=== PATIENT | female | born 2000 | race Caucasian/White ===

== ENCOUNTER 2018-03-05 09:43 | Emergency (ER) | payer OTHER ==
[~2018-03-05] VITALS: Ht 165.1 cm; Wt 61.2 kg
[2018-03-05] MEDS ORDERED: PYRIDIUM200 M1 PO ×2 (09:52→10:50)
[2018-03-05] MEDS ORDERED: BACTRIM 400-801 EACH PO ×2 (09:52→10:50)
[2018-03-05] MEDS ORDERED: BIRTH CONTROL (10:06)
[2018-03-05 10:18] LABS: BILIRUBIN NEGATIVE (NEGATIVE); BLOOD 3+ (NEGATIVE); CLARITY TURBID (CLEAR); COLOR RED (YELLOW); GLUCOSE NEGATIVE (NEGATIVE); KETONE NEGATIVE (NEGATIVE); NITRITE NEGATIVE (NEGATIVE); PH 6.5 (5.0-9.0); SPECIFIC GRAVITY >= 1.030 (1.005-1.030); UROBILINOGEN 0.2 E.U./dl (0.2-1.0)
[2018-03-05 10:26] LABS: LEUKO ESTERASE NEGATIVE (NEGATIVE)
[2018-03-05 10:27] LABS: RBC TNTC rbc/hpf (0-2)
[2018-03-05 10:31] LABS: BACTERIA 1+; EPITHELIAL CELLS 40-50; WBC 51-100 wbc/hpf (0-5)
== END 2018-03-05 10:00 | disposition home or self-care (01) ==
LOC: ED 09:43
PROVIDERS: Emergency Medicine
DX: N39.0 Urinary tract infection, site not specified (principal)

== ENCOUNTER 2018-09-21 21:31 | Emergency (ER) | payer OTHER ==
[~2018-09-21] VITALS: Wt 63.5 kg
[~2018-09-21 21:31] MED LIST: BACTRIM 400-801 EACH PO; BIRTH CONTROL; PYRIDIUM200 M1 PO
[2018-09-21 22:02] LABS: BILIRUBIN NEGATIVE (NEGATIVE); BLOOD 3+ (NEGATIVE); CLARITY SL CLOUDY (CLEAR); COLOR YELLOW (YELLOW); GLUCOSE NEGATIVE (NEGATIVE); KETONE NEGATIVE (NEGATIVE); LEUKO ESTERASE TRACE (NEGATIVE); NITRITE NEGATIVE (NEGATIVE); SPECIFIC GRAVITY <= 1.005 (1.005-1.030); UROBILINOGEN 0.2 E.U./dl (0.2-1.0)
[2018-09-21 22:10] LABS: BACTERIA 1+; EPITHELIAL CELLS TNTC; RBC 21-30 rbc/hpf (0-2); WBC 21-30 wbc/hpf (0-5)
[2018-09-21 22:29] LABS: BASO % 0.2 % (0.0-1.0); EOS # 0.1 10*3/uL (0.0-0.4); EOS % 0.8 % (1.0-4.0); HEMATOCRIT 33.2 % (37.0-47.0); HEMOGLOBIN 11.3 g/dl (12.0-16.0); LYMPH # 2.3 10*3/uL (1.3-4.4); LYMPH % 18.1 % (27.0-41.0); MEAN CELL VOLUME 87.1 fl (81.0-99.0); MEAN CORPUSCULAR HGB 29.7 pg (27.0-31.0); MEAN PLATELET VOLUME 9.1 fl (9.6-12.3); MONO # 0.7 10*3/uL (0.1-1.0); MONO % 5.8 % (3.0-9.0); NEUT # 9.6 10*3/uL (2.3-7.9); NEUT % 74.7 % (47.0-73.0); PLATELET COUNT AUTOMATED 239 10*3/uL (130-400); RED BLOOD COUNT 3.81 10*6/uL (4.10-5.10); RED CELL DISTRI WIDTH 14.2 % (0-14.5); WHITE BLOOD COUNT 12.8 10*3/uL (4.8-10.8)
[2018-09-21] MEDS ORDERED: MACROBID100 M1 PO (22:36)
[2018-09-21 22:40] LABS: ACT PARTIAL THROMBO TIME 25.1 SECONDS (20.8-31.5)
[2018-09-21 22:46] LABS: ALBUMIN 3.5 gm/dl (3.1-4.5); ALKALINE PHOSPHATASE 80 U/L (45-117); BUN 3 mg/dl (7-24); CHLORIDE 104 mmol/L (98-107); CREATININE 0.53 mg/dL (0.55-1.02); POTASSIUM 3.5 mmol/L (3.5-5.1); SGOT/AST 11 IU/L (3-35); SGPT/ALT 13 U/L (12-78); SODIUM 138 mmol/L (136-145); TOTAL PROTEIN 7.7 gm/dL (6.4-8.2)
== END 2018-09-21 23:31 | disposition home or self-care (01) ==
LOC: ED 21:31
PROVIDERS: Physician Assistant
DX: O20.0 Threatened abortion (principal); O23.41 Unspecified infection of urinary tract in pregnancy, first trimester; Z3A.13 13 weeks gestation of pregnancy

== ENCOUNTER 2020-05-21 19:15 | Emergency (ER) | payer OTHER ==
[~2020-05-21] VITALS: Ht 165.1 cm; Wt 63.5 kg
[~2020-05-21 19:15] MED LIST changes: +MACROBID100 M1 PO
[2020-05-21] MEDS ORDERED: IBU600 M1 PO (19:48)
== END 2020-05-21 19:54 | disposition home or self-care (01) ==
LOC: ED 19:15
PROVIDERS: Physician Assistant
DX: M25.511 Pain in right shoulder (principal); M25.571 Pain in right ankle and joints of right foot; M79.89 Other specified soft tissue disorders; X58.XXXA Exposure to other specified factors, initial encounter; Y93.89 Activity, other specified; Y92.89 Other specified places as the place of occurrence of the external cause; Y99.8 Other external cause status

== ENCOUNTER 2021-10-01 20:33 | Emergency (ER) | payer OTHER ==
[~2021-10-01] VITALS: Ht 165.1 cm; Wt 65.8 kg
[~2021-10-01 20:33] MED LIST changes: +IBU600 M1 PO
[2021-10-01 21:33] LABS: BASO % 0.4 % (0.0-1.0); EOS # 0.3 10*3/uL (0.0-0.4); HEMATOCRIT 41.9 % (37.0-47.0); LYMPH # 2.5 10*3/uL (1.3-4.4); LYMPH % 36.1 % (27.0-41.0); MEAN CELL VOLUME 88.2 fl (81.0-99.0); MEAN CORPUSCULAR HGB 28.8 pg (27.0-31.0); MEAN CORPUSCULAR HGB CONC 32.7 g/dl (33.0-37.0); MEAN PLATELET VOLUME 8.8 fl (9.6-12.3); MONO # 0.6 10*3/uL (0.1-1.0); MONO % 8.5 % (3.0-9.0); NEUT # 3.5 10*3/uL (2.3-7.9); NEUT % 50.7 % (47.0-73.0); PLATELET COUNT AUTOMATED 286 10*3/uL (130-400); RED BLOOD COUNT 4.75 10*6/uL (4.10-5.10); RED CELL DISTRI WIDTH 11.6 % (0-14.5); WHITE BLOOD COUNT 6.8 10*3/uL (4.8-10.8)
[2021-10-01 21:41] LABS: BILIRUBIN Negative (Negative); BLOOD Negative (Negative); CLARITY Clear (Clear); COLOR Yellow (Yellow); GLUCOSE Negative (Negative); KETONE Negative (Negative); LEUKO ESTERASE Negative (Negative); NITRITE Negative (Negative); PH 6.5 (4.5-8.0)
[2021-10-01 21:50] LABS: ALKALINE PHOSPHATASE 79 U/L (45-117); CHLORIDE 112 mmol/L (98-107); CREATININE 0.76 mg/dL (0.55-1.02); POTASSIUM 3.6 mmol/L (3.5-5.1); SGOT/AST 12 IU/L (3-35); SGPT/ALT 18 U/L (12-78); SODIUM 142 mmol/L (136-145); TOTAL PROTEIN 7.3 gm/dL (6.4-8.2)
[2021-10-01 21:51] LABS: BUN 11 mg/dl (7-24)
[2021-10-01 21:57] LABS: BACTERIA 2+
[2021-10-01] MEDS ORDERED: Meclizine25 MG PO (22:14)
== END 2021-10-01 22:30 | disposition home or self-care (01) ==
LOC: ED 20:33
PROVIDERS: Nurse Practitioner Family
DX: R42 Dizziness and giddiness (principal)

== ENCOUNTER 2023-12-22 20:39 | Emergency (ER) | payer OTHER ==
[~2023-12-22] VITALS: Ht 167.6 cm; Wt 86.2 kg
[~2023-12-22 20:39] MED LIST changes: +Meclizine25 MG PO
[2023-12-22] MEDS ORDERED: CEPHALEXIN 500 MG CAP PO ONE (21:20)
[2023-12-22] MEDS ORDERED: KEFLEX 500 MG E2 CAP PO (21:21)
[2023-12-22] MEDS ORDERED: Bactroban Oint22 GM T (21:21)
== END 2023-12-22 21:31 | disposition home or self-care (01) ==
LOC: ED 20:39
DX: L03.116 Cellulitis of left lower limb (principal)

== ENCOUNTER 2025-10-12 07:30 | Emergency (ER) | payer SELFPAY ==
[~2025-10-12] VITALS: Ht 167.6 cm; Wt 83.9 kg
[~2025-10-12 07:30] MED LIST changes: +Bactroban Oint22 GM T; +KEFLEX 500 MG E2 CAP PO
[2025-10-12] MEDS ORDERED: PREDNISONE50 MG PO (07:58)
[2025-10-12] MEDS ORDERED: VENT7GM INH (07:58)
[2025-10-12] MEDS ORDERED: ZITHROMAX250 MG PO (07:58)
== END 2025-10-12 08:03 | disposition home or self-care (01) ==
LOC: ED 07:30
DX: J40 Bronchitis, not specified as acute or chronic (principal)